=== PATIENT | female | born 1965 | race Caucasian/White ===

== ENCOUNTER 2017-05-30 22:51 | Emergency (ER) | payer SELFPAY ==
[~2017-05-30] VITALS: Ht 160 cm; Wt 84.5 kg
[~2017-05-30 22:51] MED LIST: ATARAX,VISTARIL25 MG PO; KEFLEX500 MG PO; PREDNISONE20 MG PO
[2017-05-30 23:31] LABS: HEMATOCRIT 35.6 % (36.0-46.0); MCH 30.8 PG (29.0-34.0); MCHC 34.8 G/DL (30.0-36.0); MCV 88.6 FL (83-99); PLATELET COUNT 280 K/uL (156-360); RBC DIS.WIDTH-CV 13.2 % (11.8-14.6); RED BLOOD COUNT 4.02 M/uL (3.80-5.20); WHITE BLOOD COUNT 9.5 K/uL (4.1-10.2)
[2017-05-30 23:40] LABS: CHLORIDE 99 mEq/L (99-109); SODIUM 135 mEq/L (136-147)
[2017-05-30 23:43] LABS: GLUCOSE 146 mg/dL (70-99)
[2017-05-30 23:44] LABS: ANION GAP 12 MEQ/L (2-14); TOTAL BILIRUBIN 0.6 mg/dL (0.0-1.0)
[2017-05-30 23:46] LABS: ALKALINE PHOSPHATASE 107 IU/L (3-129); GFR ESTIMATE (CALCULATED) > 59 mL/min/
[2017-05-30 23:47] LABS: UREA NITROGEN (BUN) 7 mg/dL (9-23)
[2017-05-31 00:08] LABS: INTER. NORMALIZED RATIO 1.2; PROTHROMBIN TIME 13.2 SEC (10.2-12.9)
[2017-05-31 00:11] LABS: PTT 24.4 SEC (25-37)
[2017-05-31] MEDS ORDERED: KEFLEX500 MG PO (00:40)
[2017-05-31 00:49] VITALS: BP 131/78
== END 2017-05-31 00:53 | disposition home or self-care (01) ==
LOC: RME 22:51 → EME 22:51 → RME 05-31 00:53
PROVIDERS: Physician Assistant
DX: L03.116 Cellulitis of left lower limb (principal); M79.605 Pain in left leg; Z87.891 Personal history of nicotine dependence
CPT/HCPCS: 80053; 85027; 85610; 85730; 93971; 99281; 99284

== ENCOUNTER 2017-07-13 22:49 | Emergency (ER) | payer SELFPAY ==
[~2017-07-13] VITALS: Ht 162.6 cm; Wt 85.1 kg
[2017-07-14 00:52] LABS: HEMATOCRIT 36.1 % (36.0-46.0); HEMOGLOBIN 12.2 G/DL (11.9-15.5); MCH 30.1 PG (29.0-34.0); MCHC 33.8 G/DL (30.0-36.0); MCV 89.1 FL (83-99); PLATELET COUNT 237 K/uL (156-360); RBC DIS.WIDTH-CV 13.2 % (11.8-14.6); RBC DIS.WIDTH-SD 43.4 % (39-53); RED BLOOD COUNT 4.05 M/uL (3.80-5.20); WHITE BLOOD COUNT 5.3 K/uL (4.1-10.2)
[2017-07-14 01:07] LABS: CHLORIDE 105 mEq/L (99-109); POTASSIUM 3.8 mEq/L (3.7-5.4); SODIUM 137 mEq/L (136-147)
[2017-07-14 01:09] LABS: GLUCOSE 117 mg/dL (70-99)
[2017-07-14 01:13] LABS: CREATININE 0.6 mg/dL (0.6-1.3); GFR ESTIMATE (CALCULATED) > 59 mL/min/
[2017-07-14 01:14] LABS: UREA NITROGEN (BUN) 9 mg/dL (9-23)
[2017-07-14] MEDS ORDERED: KEFLEX500 MG PO (01:44)
[2017-07-14 01:50] VITALS: BP 144/87
== END 2017-07-14 01:51 | disposition home or self-care (01) ==
LOC: EME 22:49
PROVIDERS: Emergency Medicine
DX: L03.115 Cellulitis of right lower limb (principal); Z87.891 Personal history of nicotine dependence
CPT/HCPCS: 73630; 80048; 83605; 85027; 99281; 99284